=== PATIENT | male | born 1955 | race Caucasian/White ===

== ENCOUNTER 2018-07-11 12:28 | Inpatient (IN) ==
[2018-07-11] MEDS: levETIRAcetam 500 MG Tablet PO SCH (20:57)
[2018-07-11] MEDS: Sucralfate 1 GM Tablet PO SCH (20:57)
[2018-07-11] MEDS: traZODone 50 MG Tablet PO SCH (23:27)
[2018-07-11] MEDS: QUEtiapine 25 MG Tablet PO SCH (23:29)
[2018-07-12] MEDS: Lisinopril 10 MG Tablet PO SCH (08:31)
[2018-07-12] MEDS: levETIRAcetam 500 MG Tablet PO SCH ×2 (08:31→20:55)
[2018-07-12] MEDS: Sucralfate 1 GM Tablet PO SCH ×4 (08:31→20:55)
[2018-07-12] MEDS ORDERED: glipiZIDE 5 MG Tablet PO SCH (09:00)
--- NOTE | 2018-07-12 10:37 | P.CON ---
History of Present Illness Consult date: 07/12/18 Requesting Physician: Stefano Naranjo Reason for Consult: Medical management Primary Care Provider: UNKNOWN Chief Complaint: Medical management History of Present Illness: This is a 63-year-old male patient who is seen in the psychiatric department and [facility] was consulted for medical management. Patient seen and examined, sitting up in chair comfortably no apparent distress. He is a relatively poor historian and unable to offer much input regarding his reason for hospitalization as well as any medical history. He does state that he has a history of diabetes as well as hypertension and previous cardiac stent placement. He is unable to tell me when these stents were placed and does not know the name of his primary doctor nor teacher emotionally impaired. Supposedly patient lives at an [facility]. His home medications were continued. His blood pressure is controlled, systolic in the 150s. Accu-Cheks will be followed while hospitalized. Patient does complain of some right upper quadrant pain and CVA tenderness, he does admit to a history of kidney stones in his left kidney saw Dr. Kirk urology, 3 years ago. He also complains of some burning after he eats in his midepigastric area. Review of Systems All other systems reviewed negative except as stated in HPI PMFSH - History History Provided By: Patient - Medical History Medical History: Medical History (Last Updated 07/12/18 @ 13:27 by Natacha Mcdonough) CAD (coronary artery disease) Diabetes History of kidney stones Hypertension - Surgical History Surgical History: Surgical History (Last Updated 07/12/18 @ 13:27 by Natacha Mcdonough) H/O lithotripsy - Family History Family History: Family History (Last Updated 07/12/18 @ 13:27 by Natacha Mcdonough) Other Family history in first degree relatives is unremarkable - Social History I have reviewed the patient's Social History: Yes - Tobacco History Second Hand Smoke Exposure: No Tobacco Use In Past 30 Days: No Smoking Status: Former smoker Tobacco Type: Cigarettes - Alcohol History How Often Do You Have a Drink Containing Alcohol: Never - Substance Use History Substance History: No History of Abuse - Immunization History Tetanus Immunization: Unable to Assess Hx Influenza Vaccine This Season: No Medications and Allergies Active Medications: Active Medications Clopidogrel Bisulfate (Plavix) 75 mg PO DAILY [facility] Last Admin: 07/12/18 08:32 Dose: 75 mg Glipizide (Glucotrol) 5 mg PO DAILY [facility] Last Admin: 07/12/18 08:31 Dose: 5 mg Levetiracetam (Keppra) 500 mg PO BID [facility] Last Admin: 07/12/18 08:31 Dose: 500 mg Lisinopril (Prinivil) 10 mg PO DAILY [facility] Last Admin: 07/12/18 08:31 Dose: 10 mg Metformin HCl (Glucophage) 500 mg PO DAILY@1200 [facility] Metformin HCl (Glucophage) 1,000 mg PO BID@0900,1800 [facility] Last Admin: 07/12/18 08:49 Dose: 1,000 mg Pantoprazole Sodium (Protonix) 40 mg PO BID [facility] Last Admin: 07/12/18 08:31 Dose: 40 mg Pravastatin Sodium (Pravachol) 80 mg PO HS [facility] Last Admin: 07/11/18 20:57 Dose: 80 mg Quetiapine Fumarate (Seroquel) 50 mg PO [facility] Last Admin: 07/11/18 23:29 Dose: Not Given Sertraline HCl (Zoloft) 50 mg PO DAILY [facility] Sucralfate (Carafate) 1 gm PO QID [facility] Last Admin: 07/12/18 08:31 Dose: 1 gm Trazodone HCl (Desyrel) 50 mg PO [facility] Last Admin: 07/11/18 23:27 Dose: Not Given Allergies Allergy/AdvReac Type Severity Reaction Status Date / Time No Known Allergies Allergy Verified 07/11/18 17:12 Physical Exam Vital signs: Vital Signs 07/11/18 17:35 07/11/18 18:14 07/12/18 05:40 Temperature 97.4 F L 97.4 F L 98.8 F Pulse Rate 86 82 Respiratory Rate 18 18 18 Blood Pressure 152/83 H 152/83 H 154/83 H Pulse Oximetry 93 L 93 L 96 Intake & Output 07/11/18 07/12/18 07/12/18 18:59 06:59 18:59 Weight 82.5 kg Other: Weight On Admission 82.5 kg Narrative: GENERAL: Well-developed, well-nourished patient in [facility]. Sitting up in chair in no apparent distress. SKIN: Warm and dry. No rash. HEAD: Normocephalic. Atraumatic. EYES: Pupils equal and round. No scleral icterus. No injection or drainage. ENT: No nasal bleeding or discharge. Mucous membranes pink and moist. NECK: Supple. Trachea midline. CARDIOVASCULAR: Regular rate and rhythm. S1, S2 noted. No murmur appreciated. RESPIRATORY: No accessory muscle use. Clear to auscultation. Breath sounds equal bilaterally. GASTROINTESTINAL: Abdomen soft, non-tender, nondistended. Normoactive bowel sounds x4. : Mild right CVA tenderness. MUSCULOSKELETAL: No obvious deformities. Extremities without clubbing, cyanosis , or edema. NEUROLOGICAL: Awake and alert. No obvious cranial nerve deficits. Motor grossly within normal limits. 5/5 muscle strength in bilateral upper and lower extremities. Normal speech. PSYCHIATRIC: Appropriate mood and affect; insight and judgment normal. Assessment and Plan - Plan This is a 63-year-old male patient with: Depression -Management per primary team. -Continue medications as prescribed, Seroquel and Zoloft.. Type 2 diabetes mellitus, chronic -Patient continued on home medications, glipizide and metformin. -Check Accu-Cheks, monitor for any hypoglycemia. -Monitor blood sugar trends. Hypertension, chronic -Will continue home medications. -Continue to monitor blood pressure trends. History of CAD -Patient takes Plavix at home, this will be continued. Right upper quadrant pain Right CVA tenderness History of kidney stones -Patient complains of abdominal pain in the right upper quadrant tenderness. -Obtain UA as well as BMP and CBC. -Monitor any infection. -Check renal ultrasound. GERD -Patient complaints of some burning after eating, history of GERD. -Continue Carafate and Protonix. DVT Prophylaxis: Ambulation. Thank you for this consult, we will follow with you. Discussed Condition With: Patient and RN.
[2018-07-12] MEDS: Sertraline 50 MG Tablet PO SCH (12:15)
[2018-07-12] MEDS ORDERED: Dextrose 50% in Water 50 ML Vial IV.PUSH PRN (13:21)
[2018-07-12] MEDS ORDERED: Aluminum/Magnesium/Simethacone Susp 30 ML UDC PO PRN (14:47)
[2018-07-12] MEDS ORDERED: Acetaminophen 325 MG Tablet PO PRN (14:47)
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
--- NOTE | 2018-07-12 15:41 | US ---
EXAM DATE: 07/12/2018 3:38 PM EST AGE/SEX: 63 years / Male INDICATIONS: Flank pain. CLINICAL DATA: This is the patient's initial encounter. Patient reports that signs and symptoms have been present for 1 day and indicates a pain score of 1/10. MEDICAL/SURGICAL HISTORY: Diabetes. Hypertension. Coronary artery disease. Kidney stones. Lit hotripsy. COMPARISON: No prior exams available for comparison. MEASUREMENTS: Right Kidney:__9.0 x 5.2 x 4.9 cm Left Kidney:__9.4 x 4.3 x 5.1 cm FINDINGS: Right Kidney: No mass or hydronephrosis. Left Kidney: No mass or hydronephrosis. Bladder: Within normal limits given the degree of distension. Other: None. CONCLUSION: 1. Negative renal sonogram. Electronically signed by: Taylor Ron MD 07/12/2018 3:40 PM EST
[2018-07-12] MEDS ORDERED: Insulin NovoLOG Aspart Correctional Sugar Inj SQ SCH (17:00)
[2018-07-12 17:06] LABS: Baso # (Auto) 0.1 th/mm3 (0.0-0.2); Baso % (Auto) 0.5 % (0.0-2.0); Eos # (Auto) 0.3 th/mm3 (0.0-0.4); Eos % (Auto) 1.7 % (0.0-4.0); Hemoglobin 13.7 gm/dL (13.0-17.0); Lymph # (Auto) 3.2 th/mm3 (1.0-4.8); Lymph % (Auto) 20.1 % (9.0-44.0); Mean Corpuscular HGB Conc 34.4 % (32.0-36.0); Mean Corpuscular Volume 87.2 fL (80.0-100.0); Mean Platelet Volume 9.8 fL (7.0-11.0); Mono # (Auto) 1.2 th/mm3 (0.0-0.9); Mono % (Auto) 7.6 % (0.0-8.0); Neut # (Auto) 11.1 th/mm3 (1.8-7.7); Neut % (Auto) 70.1 % (16.0-70.0); Platelet Count 309 th/mm3 (150-450); Red Blood Count 4.58 mil/mm3 (4.50-5.90); Red Cell Distribution Width 14.9 % (11.6-17.2); White Blood Count 15.9 th/mm3 (4.0-11.0)
[2018-07-12 17:25] LABS: Calcium 8.7 mg/dL (8.5-10.1); Carbon Dioxide 24.8 meq/L (21.0-32.0); Potassium 4.2 meq/L (3.5-5.1)
[2018-07-12] MEDS: QUEtiapine 25 MG Tablet PO SCH (20:56)
[2018-07-12] MEDS: traZODone 50 MG Tablet PO SCH (20:56)
[2018-07-13] MEDS: glipiZIDE 5 MG Tablet PO SCH (06:31)
--- NOTE | 2018-07-13 08:44 | P.CONPSY ---
Provisional Diagnosis Admission Date: July 11, 2018 16:18 Ilion I.: 1. Unspecified psychosis Ilion II.: Deferred History of Present Illness Service: Psychiatry Consult date: 07/13/18 Requesting Physician: Stefano Naranjo Reason for Consult: Second opinion for involuntary psychiatric hospitalization Primary Care Provider: UNKNOWN Chief Complaint: Medical management History of Present Illness: From Dr. Naranjo's H&P: Patient is a 63-year-old [place] born white male comes here under [place] act signed by Cheikh Randle for [facility] dated 07/10/2018 and 9 AM that document reviewed stating major depressive disorder with psychotic features patient is delusional refusing medical care and poorly cooperative patient seen screen at that facility urine toxicology negative blood alcohol level negative. Patient medically cleared and transferred here under the Hank[place] act. We have our EMR shows no prior contact with this patient at [facility] [address]. Patient seen in the dayroom laying in [facility] chair RN present throughout session. Patient is an elderly appearing white male speaking in good Mohawk though with a fairly strong Slovenian accent. He is oriented to place time and situation. 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 He states he lives in a halfway where he does not like it there. It appears she initially went to the other hospital complaining of abdominal pain though at that facility he claimed to have been poisoned by the people at the halfway with a use food that is out of date. It appears she has been in this facility facility for about 2 months has been in prior nursing homes over the past few years. He has been at a young age he says he has no children of his own that he had as a child that early in life but he has 2 nephews that appear to be somewhat close to him. He does have family supposedly in [place]. He denies any prior psychiatric contact hospitalizations or psychotropic medications. He denies any suicidality voices or visions. 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 In any event at the present time patient does meet criteria for further inpatient psychiatric assessment. We will have the hospitalist consult with us. We will also have neuropsychology consult with us. Patient has multiple medical issues. His med reconciliation from the hospital has been reviewed and medicine is seeing this patient already. Though I feel he does meet inpatient criteria under the Hank[place] act thus I will do first opinion request second opinion. We need to get further information about patient's past mental health history and residential history On my examination today, 07/13: Patient seen and examined with nurse. Chart reviewed. Case discussed with nursing staff. I have explained to the patient the purpose of my evaluation today. On my examination today, the patient presents as somewhat irascible and easily agitated. He rails against someone named Sima, reportedly the pharmacist in charge owner of an [facility] where he had resided, accusing her of feeding residents "old food" that in 2005. He alleges that she "murders people for money." He also alleges that a case sealer, Shani, is involved in "criminal stuff." These beliefs do not seem confined to these individuals, however. For example, the patient notes that he has recently been moved to a new facility but has found that they are doing the same things there (e.g. feeding residents food) . In context, these beliefs seem to have a delusional quality, although some kernel of truth cannot be ruled out. Patient denies any SI or HI. He denies any mood symptoms. He denies any hallucinations. Remainder of the psychiatric ROS is negative. No acute physical complaints. Past psychiatric history: Patient denies a history of psychiatric diagnosis. He denies any history of inpatient or outpatient psychiatric treatment. He denies any history of self-harm. Family history: The patient denies any family history of mental illness. Chemical dependency history: The patient denies any abuse of drugs or alcohol. Social history: Patient is originally from [place]. He reports that he has been residing at his present [facility] for 3 weeks and before that was residing in another [facility]. 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 His is and he has 1 child who is also reportedly . Review of Systems All other systems reviewed negative except as stated in HPI (Limitation: Poor historian.) PMFSH - History History Provided By: Patient - Medical History Medical History: Medical History (Last Reviewed 07/12/18 @ 15:01 by Stefano Naranjo MD) CAD (coronary artery disease) Diabetes History of kidney stones Hypertension - Surgical History Surgical History: Surgical History (Last Reviewed 07/12/18 @ 15:01 by Stefano Naranjo MD) H/O lithotripsy - Family History Family History: Family History (Last Reviewed 07/12/18 @ 15:01 by Stefano Naranjo MD) Other Family history in first degree relatives is unremarkable - Tobacco History Second Hand Smoke Exposure: No Tobacco Use In Past 30 Days: No Smoking Status: Former smoker Tobacco Type: Cigarettes - Alcohol History How Often Do You Have a Drink Containing Alcohol: Never - Substance Use History Substance History: No History of Abuse - Immunization History Tetanus Immunization: Unable to Assess Hx Influenza Vaccine This Season: No Medications and Allergies Active Medications: Active Medications Acetaminophen (Tylenol) 650 mg PO Q4H PRN PRN Reason: Pain 1-5 or Temp >101F Al Hydrox/Mg Hydrox/Simethicone (Mag-Al Plus Susp Liq) 30 ml PO Q6H PRN PRN Reason: DYSPEPSIA Al Hydroxide/Mg Hydroxide (Milk Of Magnesia Liq) 30 ml PO Q12H PRN PRN Reason: Mild Constipation Clopidogrel Bisulfate (Plavix) 75 mg PO DAILY [facility] Last Admin: 07/12/18 08:32 Dose: 75 mg Glipizide (Glucotrol) 5 mg PO DAILY@0700 [facility] Last Admin: 07/13/18 06:31 Dose: 5 mg Hydroxyzine HCl (Atarax) 50 mg PO Q6H PRN PRN Reason: ANXIETY Levetiracetam (Keppra) 500 mg PO BID [facility] Last Admin: 07/12/18 20:55 Dose: 500 mg Lisinopril (Prinivil) 10 mg PO DAILY [facility] Last Admin: 07/12/18 08:31 Dose: 10 mg Metformin HCl (Glucophage) 500 mg PO DAILY@1200 [facility] Last Admin: 07/12/18 11:44 Dose: 500 mg Metformin HCl (Glucophage) 1,000 mg PO BID@0900,1800 [facility] Last Admin: 07/12/18 18:42 Dose: Not Given Pantoprazole Sodium (Protonix) 40 mg PO BID [facility] Last Admin: 07/12/18 20:55 Dose: 40 mg Pravastatin Sodium (Pravachol) 80 mg PO [facility] Last Admin: 07/12/18 20:55 Dose: 80 mg Quetiapine Fumarate (Seroquel) 50 mg PO [facility] Last Admin: 07/12/18 20:56 Dose: 50 mg Sertraline HCl (Zoloft) 50 mg PO DAILY [facility] Last Admin: 07/12/18 12:15 Dose: Not Given Sucralfate (Carafate) 1 gm PO QID [facility] Last Admin: 07/12/18 20:55 Dose: 1 gm Trazodone HCl (Desyrel) 50 mg PO [facility] Last Admin: 07/12/18 20:56 Dose: 50 mg Allergies Allergy/AdvReac Type Severity Reaction Status Date / Time No Known Allergies Allergy Verified 07/11/18 17:12 Exam Vital signs: Vital Signs 07/12/18 17:25 07/13/18 06:00 Temperature 98.8 F 98.1 F Pulse Rate 78 71 Respiratory Rate 17 16 Blood Pressure 102/56 L 93/54 L Pulse Oximetry 95 92 L Narrative: Physical examination was completed by hospitalist accounting policy consultant. On my examination today, the patient appears to be in no acute physical distress. I do note that the patient has 2 small superficial lacerations on his forehead, and when I asked him about this he says that he fell on the toilet. Labs and vital signs reviewed: Laboratory Results - last 24 hr 07/12/18 07/12/18 07/12/18 15:30 15:30 17:39 WBC 15.9 H RBC 4.58 Hgb 13.7 Hct 40.0 MCV 87.2 MCH 30.0 MCHC 34.4 RDW 14.9 Plt Count 309 MPV 9.8 Neut % (Auto) 70.1 H Lymph % (Auto) 20.1 [place] % (Auto) 7.6 Eos % (Auto) 1.7 Baso % (Auto) 0.5 Neut # (Auto) 11.1 H Lymph # (Auto) 3.2 [place] # (Auto) 1.2 H Eos # (Auto) 0.3 Baso # (Auto) 0.1 WBC Differential . Differential Comment Auto diff final Sodium 140 Potassium 4.2 Chloride 106 Carbon Dioxide 24.8 Anion Gap 9 BUN 19 H Creatinine 1.36 H Estimated GFR 53 L POC Glucose 143 H Random Glucose 96 Calcium 8.7 07/12/18 07/13/18 20:39 06:26 WBC RBC Hgb Hct MCV MCH MCHC RDW Plt Count MPV Neut % (Auto) Lymph % (Auto) [place] % (Auto) Eos % (Auto) Baso % (Auto) Neut # (Auto) Lymph # (Auto) [place] # (Auto) Eos # (Auto) Baso # (Auto) WBC Differential Differential Comment Sodium Potassium Chloride Carbon Dioxide Anion Gap BUN Creatinine Estimated GFR POC Glucose 152 H 199 H Random Glucose Calcium Mental Status Examination Appearance: Disheveled Consciousness: Alert Orientation: Person, Place, Date/Time Motor Activity: Abnormal gait (In a Rhonda chair) Speech: Unremarkable Language: Other (Rambling) Fund of Knowledge: Adequate (Fair) Attention and Concentration: Adequate (Fair ) Mood: Irritable Affect: Irritable, Other (Somewhat dysphoric) Thought Process & Associations: Other (Somewhat perseverative) Thought Content: Delusional Hallucination Type: None Delusion Type: Paranoid Suicidal Ideation: No Suicidal Plan: No Suicidal Intention: No Homicidal Ideation: No Homicidal Plan: No Homicidal Intention: No Insight: Poor Judgment: Poor Mental Status Exam Remarks: Attempts were made at mental status testing beyond orientation, but the patient becomes frustrated and says "I am a normal man!" and essentially refuses to participate in further mental status testing. Assessment and Plan - Assessment (1) Unspecified psychosis Code(s): F29 - Unspecified psychosis not due to a substance or known physiological condition Status: Acute - Plan Plan: Given the circumstances of the patient's presentation here and his presentation on my examination today, I concur with Dr. Naranjo that the patient meets criteria for involuntary psychiatric hospitalization under the Hankins act. Main concern here is for possible self-care deficit as a consequence of psychosis, although there may be some potential for risk of harm to others since he believes that he and others are being poisoned with food. As noted above, I do suspect that the patient's beliefs are delusional in nature, but there may be some kernel of truth to the patient's allegations. If further information or observations suggests that this may be the case, initiation of a DCF report is recommended. I have completed the second opinion paperwork. Further care as per Dr. Naranjo. Thank you very much for this consultation. Signing off. Justification for Continued Inpatient Stay: Per Dr. Naranjo Request Healthcare Surrogate/Guardian Advocate?: No (1) Unspecified psychosis Qualifiers: Psychosis type: unspecified psychosis type Qualified Code(s): F29 - Unspecified psychosis not due to a substance or known physiological condition
[2018-07-13] MEDS: Sucralfate 1 GM Tablet PO SCH ×4 (09:10→20:47)
[2018-07-13] MEDS: Sertraline 50 MG Tablet PO SCH (09:10)
[2018-07-13] MEDS: levETIRAcetam 500 MG Tablet PO SCH ×2 (09:10→20:47)
[2018-07-13] MEDS: Lisinopril 10 MG Tablet PO SCH (09:18)
--- NOTE | 2018-07-13 10:50 | P.PNPSY ---
Subjective Remarks: Patient is seen today in day room with floor staff, chart reviewed, patient compliant medication. Counselor has talked with patient's female friend. 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 We need to get further information about that. Patient's friend is been unable to visit with us today we will try to arrange a meeting for the next day or so. Otherwise patient was calm cooperative with me did remember me from yesterday. Continues to complain of some vague abdominal pain he feels our food here is tolerable. For now continue treatment no change Review of Systems All other systems reviewed negative except as stated in HPI Mental Status Examination Appearance: Disheveled (Mildly) Consciousness: Alert Orientation: Person, Place, Date/Time, Situation Motor Activity: Other (Patient right-sided weakness secondary to stroke) Speech: Rapid (Strong [place]er accent) Language: Adequate Fund of Knowledge: Adequate (Fair) Attention and Concentration: Adequate (Fair ) Memory: Impaired Mood: Other (Euthymic to somewhat irritable and dysphoric) Affect: Other (Good range and intensity) Thought Process & Associations: Goal directed, Loose associations Thought Content: Delusional (Feels his [facility] is being poisoned at the [facility]) Hallucination Type: None Delusion Type: Paranoid Suicidal Ideation: No Suicidal Plan: No Suicidal Intention: No Homicidal Ideation: No Homicidal Plan: No Homicidal Intention: No Insight: Poor Judgment: Poor Assessment and Plan - Assessment (1) Unspecified psychosis Code(s): F29 - Unspecified psychosis not due to a substance or known physiological condition Status: Acute - Plan Plan: Patient remains calm low behavioral problems though patient is still somewhat delusional. For now continue treatment. Continue to attempt to arrange a meeting with his lady friend Justification for Continued Inpatient Stay: At this time patient would decompensate if placed in a lower level of care Discharge Planning: To be determined placement may be somewhat problematic Request Healthcare Surrogate/Guardian Advocate?: No (1) Unspecified psychosis Qualifiers: Psychosis type: unspecified psychosis type Qualified Code(s): F29 - Unspecified psychosis not due to a substance or known physiological condition
--- NOTE | 2018-07-13 15:26 | P.TTN ---
- Patient Problems Problems: 1. Discharge planning 2. Medication compliance 3. Knowledge deficit 4. Lack of coping skills - Progress Toward Goals Provider Present: Dr. Miroslava Naranjo, Dr. Nikole Franco Provider Input: 07/13/18: A Friend of the Patient will be meeting with Dr. Naranjo today. Nurse(s) Present: Natalie Nurse Input: 07/13/18: Manic, Insomnia Psychiatric Counselors Present: Damon Gan Jr., [facility], Danika Tomas, [facility] Psychiatric Therapist Input: 07/13/18: Return to facility in [place] when stable Group Spec/RT/OT/POWELL Present: Es Pollock, GPS, Law French, OT Occupational Therapist Input: 07/13/18: Pt has been attending select group activities since his admission. - Discharge Plan 07/13/18: When stable patient will be placed MH Tender - Documentation Scribe: Es Pollock Teaching Recipient: Patient
--- NOTE | 2018-07-13 15:40 | P.PNIM ---
Subjective Interval history: Follow-up diabetes mellitus type II, hypertension, CVA with right sided weakness and previous cardiac stent placement. Patient seen and examined sitting in the chair in the day room, patient complain of right lower abdominal pain and epigastric pain, stated is not acid complained more of gas. Patient complained of constipation and wants to have some stool softener. Patient denies any nausea or vomiting. Patient denies any headache or dizziness, denies any chest pain or shortness of breath, denies any fever or chills. 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 Physical Exam Vital signs: Vital Signs 07/12/18 17:25 07/13/18 06:00 Temperature 98.8 F 98.1 F Pulse Rate 78 71 Respiratory Rate 17 16 Blood Pressure 102/56 L 93/54 L Pulse Oximetry 95 92 L Narrative: GENERAL: Well-developed, well-nourished descent male, sitting up in a chair in no apparent distress SKIN: Warm and dry. HEAD: Atraumatic. Normocephalic. EYES: Pupils equal and round. No scleral icterus. No injection or drainage. ENT: No nasal bleeding or discharge. Mucous membranes pink and moist. NECK: Trachea midline. No JVD. CARDIOVASCULAR: Regular rate and rhythm. RESPIRATORY: No accessory muscle use. Clear to auscultation. Breath sounds equal bilaterally. GASTROINTESTINAL: Abdomen soft, non-tender, nondistended. Hepatic and splenic margins not palpable. MUSCULOSKELETAL: Extremities without clubbing, cyanosis, or edema. No obvious deformities. Right-sided weakness, right upper extremity flaccid NEUROLOGICAL: Awake and alert. No obvious cranial nerve deficits. Motor grossly within normal limits. Generalized weakness, moving all 4 extremities except right upper arm flaccid. Normal speech. PSYCHIATRIC: Appropriate mood and affect; insight and judgment poor Results - Labs CBC & Chem 7: 07/12/18 15:30 07/12/18 15:30 Laboratory Results - last 24 hr 07/12/18 07/12/18 07/12/18 15:30 15:30 15:59 WBC 15.9 H RBC 4.58 Hgb 13.7 Hct 40.0 MCV 87.2 MCH 30.0 MCHC 34.4 RDW 14.9 Plt Count 309 MPV 9.8 Neut % (Auto) 70.1 H Lymph % (Auto) 20.1 [place] % (Auto) 7.6 Eos % (Auto) 1.7 Baso % (Auto) 0.5 Neut # (Auto) 11.1 H Lymph # (Auto) 3.2 [place] # (Auto) 1.2 H Eos # (Auto) 0.3 Baso # (Auto) 0.1 WBC Differential . Differential Comment Auto diff final Sodium 140 Potassium 4.2 Chloride 106 Carbon Dioxide 24.8 Anion Gap 9 BUN 19 H Creatinine 1.36 H Estimated GFR 53 L POC Glucose 103 Random Glucose 96 Calcium 8.7 07/12/18 07/12/18 07/13/18 17:39 20:39 06:26 WBC RBC Hgb Hct MCV MCH MCHC RDW Plt Count MPV Neut % (Auto) Lymph % (Auto) [place] % (Auto) Eos % (Auto) Baso % (Auto) Neut # (Auto) Lymph # (Auto) [place] # (Auto) Eos # (Auto) Baso # (Auto) WBC Differential Differential Comment Sodium Potassium Chloride Carbon Dioxide Anion Gap BUN Creatinine Estimated GFR POC Glucose 143 H 152 H 199 H Random Glucose Calcium - Imaging Impressions Abdomen/Bladder Ultrasound 07/12/18 00:00 CONCLUSION: 1. Negative renal sonogram. Assessment and Plan - Assessment (1) Hypertension Code(s): I10 - Essential (primary) hypertension Status: Acute (2) Diabetes type 2, controlled Code(s): E11.9 - Type 2 diabetes mellitus without complications Status: Acute (3) CAD (coronary artery disease) Code(s): I25.10 - Atherosclerotic heart disease of [place] coronary artery without angina pectoris Status: Acute (4) Abdominal pain Code(s): R10.9 - Unspecified abdominal pain Status: Acute - Plan This is a 63-year-old male patient with past medical history of hypertension, CAD, CVA, diabetes mellitus type 2, and depression Type 2 diabetes mellitus, chronic Blood sugar fair controlled -Patient continued on home medications, glipizide and metformin. -Check Accu-Cheks, monitor for any hypoglycemia. -Monitor blood sugar trends. Hypertension, chronic History of CAD Elevated BP on admission 152/83, low today at 93,54 -Decrease lisinopril dose, adjust accordingly -Continue to monitor blood pressure trends. -Continue Plavix per home dose Right upper quadrant pain Right CVA tenderness History of kidney stones Leukocytosis -Patient complains of abdominal pain in the right upper quadrant tenderness. -Monitor any infection. no fever or chills - Renal ultrasound negative -Complained of gassy pain, add stool softener and laxative as needed - send urine for UA with C & S if indicated, recheck CBC & BMP in am -Abdominal x-ray rule out ileus GERD -Patient complaints of some burning after eating, history of GERD. -Continue Carafate and Protonix. Depression/unspecified psychosis -Management per primary team. -Continue medications as prescribed, Seroquel and Zoloft.. DVT Prophylaxis: Ambulation. Thank you for this consult, we will follow with you. Code Status: Full code Discussed Condition With: Patient and nurse
[2018-07-13] MEDS: Senna/Docusate Sodium 8.6/50 MG Tablet PO SCH (16:37)
--- NOTE | 2018-07-13 17:04 | XR ---
EXAM DATE: 07/13/2018 4:55 PM EST AGE/SEX: 63 years / Male INDICATIONS: Abdominal pain. CLINICAL DATA: This is the patient's initial encounter. Patient reports that signs and symptoms have been present for 1 day and indicates a pain score of Nonresponsive. MEDICAL/SURGICAL HISTORY: . Diabetes. Hypertension. Coronary artery disease. Kidney stones. . Lithotripsy. COMPARISON: No prior exams available for comparison. FINDINGS: Significant amount retained stool is seen throughout the left colon. Intestinal gas pattern is other denis unremarkable. There is no evidence of pathologic distention, free air or mass effect. Postcholecystectomy clips are noted. CONCLUSION: Significant amount retained stool in the left colon. No evidence of obstruction. Electronically signed by: Clemente Espino MD 07/13/2018 5:02 PM EST
[2018-07-13] MEDS: Lisinopril 5 MG Tablet PO SCH (18:38)
[2018-07-13] MEDS: QUEtiapine 25 MG Tablet PO SCH (20:47)
[2018-07-13] MEDS: traZODone 50 MG Tablet PO SCH (20:47)
[2018-07-14] MEDS: glipiZIDE 5 MG Tablet PO SCH (06:31)
[2018-07-14 07:15] LABS: Baso # (Auto) 0.1 th/mm3 (0.0-0.2); Baso % (Auto) 0.5 % (0.0-2.0); Eos # (Auto) 0.2 th/mm3 (0.0-0.4); Eos % (Auto) 1.6 % (0.0-4.0); Hematocrit 36.4 % (39.0-51.0); Hemoglobin 12.5 gm/dL (13.0-17.0); Lymph # (Auto) 2.8 th/mm3 (1.0-4.8); Lymph % (Auto) 23.3 % (9.0-44.0); Mean Corpuscular HGB Conc 34.3 % (32.0-36.0); Mean Corpuscular Hemoglobin 28.9 pg (27.0-34.0); Mean Corpuscular Volume 84.1 fL (80.0-100.0); Mean Platelet Volume 9.9 fL (7.0-11.0); Mono # (Auto) 0.8 th/mm3 (0.0-0.9); Mono % (Auto) 6.4 % (0.0-8.0); Neut # (Auto) 8.2 th/mm3 (1.8-7.7); Neut % (Auto) 68.2 % (16.0-70.0); Platelet Count 254 th/mm3 (150-450); Red Blood Count 4.33 mil/mm3 (4.50-5.90); Red Cell Distribution Width 14.6 % (11.6-17.2)
[2018-07-14 07:40] LABS: Calcium 8.5 mg/dL (8.5-10.1); Carbon Dioxide 23.6 meq/L (21.0-32.0); Potassium 4.1 meq/L (3.5-5.1)
[2018-07-14] MEDS: Sucralfate 1 GM Tablet PO SCH ×4 (08:58→20:34)
[2018-07-14] MEDS: levETIRAcetam 500 MG Tablet PO SCH ×2 (08:58→20:34)
[2018-07-14] MEDS: Sertraline 50 MG Tablet PO SCH (08:58)
[2018-07-14] MEDS: Senna/Docusate Sodium 8.6/50 MG Tablet PO SCH (08:58)
[2018-07-14] MEDS: Lisinopril 5 MG Tablet PO SCH (08:59)
--- NOTE | 2018-07-14 12:00 | P.NPEVAL ---
Patient History - Record/History Review Reason for Referral: The patient is a 63 year old right handed man of [place] decent who was admitted to the psychiatry unit of [facility] on under Hankins Act for refusing medical care. He has a questionable history of CVA, and is s/p CEA on the right. The patient has been living in a custodial, complaining that the residents are trying to poison him. He is referred for baseline neurobehavioral status examination to assess cognitive, behavioral and emotional aspects of the injury and to provide treatment recommendations. [facility] - History History Provided By: Patient - Medical History Medical History: Medical History (Last Reviewed 07/12/18 @ 15:01 by Stefano Naranjo MD) CAD (coronary artery disease) Diabetes History of kidney stones Hypertension - Surgical History Surgical History: Surgical History (Last Reviewed 07/12/18 @ 15:01 by Stefano Naranjo MD) H/O lithotripsy - Family History Family History: Family History (Last Reviewed 07/12/18 @ 15:01 by Stefano Naranjo MD) Other Family history in first degree relatives is unremarkable - Tobacco History Second Hand Smoke Exposure: No Tobacco Use In Past 30 Days: No Smoking Status: Former smoker Tobacco Type: Cigarettes - Alcohol History How Often Do You Have a Drink Containing Alcohol: Never - Substance Use History Substance History: No History of Abuse - Immunization History Tetanus Immunization: Unable to Assess Hx Influenza Vaccine This Season: No Medications Active Medications Acetaminophen (Tylenol) 650 mg PO Q4H PRN PRN Reason: Pain 1-5 or Temp >101F Al Hydrox/Mg Hydrox/Simethicone (Mag-Al Plus Susp Liq) 30 ml PO Q6H PRN PRN Reason: DYSPEPSIA Al Hydroxide/Mg Hydroxide (Milk Of Magnesia Liq) 30 ml PO Q12H PRN PRN Reason: Mild Constipation Clopidogrel Bisulfate (Plavix) 75 mg PO DAILY [facility] Last Admin: 07/14/18 08:59 Dose: 75 mg Glipizide (Glucotrol) 5 mg PO DAILY@0700 [facility] Last Admin: 07/14/18 06:31 Dose: 5 mg Hydroxyzine HCl (Atarax) 50 mg PO Q6H PRN PRN Reason: ANXIETY Levetiracetam (Keppra) 500 mg PO BID [facility] Last Admin: 07/14/18 08:58 Dose: 500 mg Lisinopril (Prinivil) 5 mg PO DAILY [facility] Last Admin: 07/14/18 08:59 Dose: 5 mg Metformin HCl (Glucophage) 500 mg PO DAILY@1200 [facility] Last Admin: 07/13/18 12:24 Dose: 500 mg Metformin HCl (Glucophage) 1,000 mg PO BID@0900,1800 [facility] Last Admin: 07/14/18 10:47 Dose: 1,000 mg Pantoprazole Sodium (Protonix) 40 mg PO BID [facility] Last Admin: 07/14/18 08:58 Dose: 40 mg Pravastatin Sodium (Pravachol) 80 mg PO [facility] Last Admin: 07/13/18 20:47 Dose: 80 mg Quetiapine Fumarate (Seroquel) 50 mg PO [facility] Last Admin: 07/13/18 20:47 Dose: 50 mg Senna/Docusate Sodium (Jillian-Colace) 2 tab PO DAILY [facility] Last Admin: 07/14/18 08:58 Dose: 2 tab Sertraline HCl (Zoloft) 50 mg PO DAILY [facility] Last Admin: 07/14/18 08:58 Dose: 50 mg Sucralfate (Carafate) 1 gm PO QID [facility] Last Admin: 07/14/18 08:58 Dose: 1 gm Trazodone HCl (Desyrel) 50 mg PO [facility] Last Admin: 07/13/18 20:47 Dose: 50 mg Mental Status Assessment - Mental Status Orientation: oriented to: Self, Place, Time, disoriented to: Situation Mental Status: Variable: Language/interactions, Impaired: Thought processing, Attention, Learning/memory, Problem-solving Absent: Hallucinations, Delusions Adjustment/Coping Assessment - Adjustment/Coping Adjustment/Coping: Severe: Awareness, Insight - Observation In terms of emotional functioning, the patient demonstrated challenges. This patient demonstrated no signs of agitation, impulsivity or disinhibition, nor was there remarkable evidence of a formal thought disorder or psychosis. He was however, generally noncompliant with this examiner. There was no evidence of depression or anxiety. Thought content was free from suicidal or homicidal ideation, positive for paranoid ideation, and thought processes were bradyphrenic. The patients mood was guarded, and his affect was flat. The patient appears to possess minimal insight and awareness into their situation and within the limits of this brief evaluation, poor judgment. - Goals/Team Members LTG Status: Deferred STG Status: Deferred Team Members: Neuropsychologist Behavior - Behavior Treatment Engagement: Minimal - Observation Behaviorally, the patient demonstrated no signs of agitation, impulsivity or disinhibition. There was no remarkable evidence of a formal thought disorder or psychosis. - Goals LTG Status: Deferred STG Status: Deferred Diagnosis/Discharge Plan - Diagnosis (1) Major neurocognitive disorder due to another medical condition with behavioral disturbance Status: Acute Impression: 63 year old man admitted under Hankins Act on 07/11/2018 for refusing medical care. He was generally unable to be tested due to his noncompliance, but discussable findings are presented. He demonstrates diminished insight, awareness and judgment that calls into question his decision making capacity. In my clinical opinion, he lacks decision making capacity due to neurocognitive disorder. Maximizing Acute Care Outcome: It is recommended that the patient be monitored for emergent behavioral impulsivity as the medical condition evolves. This patients neuropathological challenges may limit rehabilitation potential going forward, and these challenges will require specialized therapeutic skills to maximize outcome. At this point in the recovery process and in my clinical opinion, the patient does not have cognitive capacity as the patient is unable to understand a situation and its likely consequences, nor is the patient able to manipulate information rationally. Cognitive capacity will be assessed throughout the recovery process. - Discharge Planning Anticipated Problems: Ongoing areas of concern will include behavioral impulsivity, lack of insight and judgment, which is not expected to improve with time or treatment. Treatment Plan: Continued psychiatric evaluation and treatment is recommended. His neurobehavioral issues appear to preclude his ability to return to a semi- independent living situation, and he may require placement in a LTAC facility. Thank you for the opportunity to assist in this patients care. Martin Zheng, Ph.D., ABPP Board Certified in Clinical Neuropsychology [place] [employer] [place] Licensed Psychologist #[id number]
--- NOTE | 2018-07-14 14:17 | P.PNPSY ---
Subjective Remarks: Patient is seen in day room with nurse Ford, chart reviewed, patient compliant medication. Dr. Muñoz consultation reviewed and appreciated and agreed with. We will increase Seroquel to 50 mg twice daily. Patient remains calm with me though with a little underlying irritability with his responses. While most are fairly accurate and goal oriented there is some degree of confusion with him. He does state he slept fairly well. States he ate fairly well. Is showing no signs of the delusional ideation related to food and food poisoning that occurred prior at this time continue treatment no change Review of Systems All other systems reviewed negative except as stated in HPI Mental Status Examination Appearance: Appropriate Consciousness: Alert Orientation: Person, Place, Date/Time Motor Activity: Abnormal gait (In a Rhonda chair) Speech: Unremarkable Language: Other (Rambling) Fund of Knowledge: Adequate (Fair) Attention and Concentration: Adequate (Fair ) Memory: Impaired Mood: Irritable Affect: Other (Increased range and intensity) Thought Process & Associations: Disorganized, Other (Somewhat perseverative) Thought Content: Delusional Hallucination Type: None Delusion Type: Paranoid Suicidal Ideation: No Suicidal Plan: No Suicidal Intention: No Homicidal Ideation: No Homicidal Plan: No Homicidal Intention: No Insight: Poor Judgment: Poor Assessment and Plan - Assessment (1) Unspecified psychosis Code(s): F29 - Unspecified psychosis not due to a substance or known physiological condition Status: Acute - Plan Plan: Patient remains somewhat irritable though no significant behavioral problems, Dr. Zheng's consultation reviewed and agreed with. She medication adjustment above we will continue to await word from patient's girlfriend to get further information about this gentleman Justification for Continued Inpatient Stay: At this time patient would decompensate a place to a lower level of care Request Healthcare Surrogate/Guardian Advocate?: No (1) Unspecified psychosis Qualifiers: Psychosis type: unspecified psychosis type Qualified Code(s): F29 - Unspecified psychosis not due to a substance or known physiological condition
--- NOTE | 2018-07-14 14:26 | P.PNIM ---
Subjective Interval history: Follow-up visit DM 2, HTN, CVA with right-sided weakness. Patient seen and examined today. Reports he is doing okay. States that he continues to have constipation. States he is being poisoned. Reassurance provided. As per nursing, no acute issues overnight. Physical Exam Vital signs: Vital Signs 07/13/18 18:11 07/14/18 06:12 Temperature 98.9 F 98.9 F Pulse Rate 75 79 Respiratory Rate 18 Blood Pressure 135/65 135/73 Pulse Oximetry 98 95 Intake & Output 07/13/18 07/14/18 07/14/18 18:59 06:59 18:59 Intake Total 480 / 480 Balance 480 / 480 Intake: Oral 480 / 480 Other: Date of Last Bowel Movement 07/13/18 Narrative: GENERAL: This is a well-nourished, well-developed patient, in no apparent distress. SKIN: Warm and dry. HEENT: Normocephalic. Pupils equal round and reactive. Nose without bleeding. Airway patent. NECK: Trachea midline. CARDIOVASCULAR: Regular rate and rhythm without murmurs, gallops, or rubs. RESPIRATORY: Clear to auscultation. Breath sounds equal bilaterally. No wheezes , rales, or rhonchi. GASTROINTESTINAL: Abdomen soft, non-tender, slightly distended. Bowel Sounds hypoactive MUSCULOSKELETAL: Extremities without clubbing, cyanosis, or edema. NEUROLOGICAL: Awake and alert. Oriented to place, person. No focal neuro deficit. Moves all extremities. Normal speech. Results - Labs CBC & Chem 7: 07/14/18 05:54 07/14/18 05:54 Laboratory Results - last 24 hr 07/14/18 07/14/18 07/14/18 05:24 05:54 05:54 WBC 12.0 H RBC 4.33 L Hgb 12.5 L Hct 36.4 L MCV 84.1 MCH 28.9 MCHC 34.3 RDW 14.6 Plt Count 254 MPV 9.9 Neut % (Auto) 68.2 Lymph % (Auto) 23.3 Andrews % (Auto) 6.4 Eos % (Auto) 1.6 Baso % (Auto) 0.5 Neut # (Auto) 8.2 H Lymph # (Auto) 2.8 Andrews # (Auto) 0.8 Eos # (Auto) 0.2 Baso # (Auto) 0.1 WBC Differential . Differential Comment Auto diff final Sodium 140 Potassium 4.1 Chloride 105 Carbon Dioxide 23.6 Anion Gap 11 BUN 24 H Creatinine 1.37 H Estimated GFR 53 L POC Glucose 148 H Random Glucose 164 H Calcium 8.5 - Imaging Impressions Abdomen X-Ray 07/13/18 00:00 CONCLUSION: Significant amount retained stool in the left colon. No evidence of obstruction. Assessment and Plan - Assessment (1) Hypertension Code(s): I10 - Essential (primary) hypertension Status: Acute (2) Diabetes type 2, controlled Code(s): E11.9 - Type 2 diabetes mellitus without complications Status: Acute (3) CAD (coronary artery disease) Code(s): I25.10 - Atherosclerotic heart disease of [place] coronary artery without angina pectoris Status: Acute (4) Abdominal pain Code(s): R10.9 - Unspecified abdominal pain Status: Acute - Plan [id number] male patient with past medical history of hypertension, CAD, CVA, diabetes mellitus type 2, and depression who [facility] delusional refusing medical care and poorly cooperative. Patient was Hankins acted and admitted to inpatient psychiatry unit for further evaluation Depression/unspecified psychosis -Management by psychiatry team Type 2 diabetes mellitus, no acute complication -Glipizide and metformin. -Accu-Cheks, monitor for any hypoglycemia. -Monitor blood sugar trends -Check hemoglobin A1c Hypertension, controlled History of CAD -Continue Plavix, lisinopril 5 mg daily (decreased dose) -Monitor BP trend Right upper quadrant pain Right CVA tenderness History of kidney stones Leukocytosis -Renal ultrasound negative -Complains of constipation -Abdominal x-ray showed Significant amount retained stool in the left colon -Lactulose x1 dose now. Continue with bowel regimen. GERD -Continue Carafate and Protonix Elevated creatinine, possibly chronic secondary to diabetic nephropathy -Avoid nephrotoxins. Monitor renal indicis -Renal ultrasound negative -Encourage p.o. fluid intake -Decrease metformin dose for now, will hold off if UI ENGINEER cont to be elevated DVT Prophylaxis Ambulation. Code Status: Full code Discussed Condition With: Patient, nurse Discharge Planning: DC disposition by primary team
[2018-07-14 17:08] LABS: Hemoglobin A1c 6.1 % (4.3-6.0)
[2018-07-14] MEDS: traZODone 50 MG Tablet PO SCH (20:34)
[2018-07-14] MEDS: QUEtiapine 25 MG Tablet PO SCH (20:35)
[2018-07-15] MEDS: glipiZIDE 5 MG Tablet PO SCH (06:23)
[2018-07-15] MEDS: levETIRAcetam 500 MG Tablet PO SCH ×2 (08:44→20:28)
[2018-07-15] MEDS: Lisinopril 5 MG Tablet PO SCH (08:45)
[2018-07-15] MEDS: QUEtiapine 25 MG Tablet PO SCH ×2 (08:45→17:26)
[2018-07-15] MEDS: Sertraline 50 MG Tablet PO SCH (08:46)
[2018-07-15] MEDS: Sucralfate 1 GM Tablet PO SCH ×3 (08:46→20:28)
[2018-07-15] MEDS: Senna/Docusate Sodium 8.6/50 MG Tablet PO SCH (11:48)
--- NOTE | 2018-07-15 14:10 | P.PNPSY ---
Subjective Remarks: Patient seen in day room with nurse Ford, chart reviewed, patient compliant medication. Patient continues alert diffusely confused today somewhat more irritable angry and paranoid saying it is nothing wrong with him mentally the point system but can say is this is the problem. He is becoming more agitated when we attempted to discuss placement issues. For now we will increase Seroquel from twice daily to 3 times daily at 50 mg Review of Systems All other systems reviewed negative except as stated in HPI Mental Status Examination Appearance: Appropriate Consciousness: Alert Orientation: Person, Place, Date/Time Motor Activity: Abnormal gait (In a Rhonda chair) Speech: Unremarkable, Rapid (Somewhat increased at this time) Language: Other (Rambling) Fund of Knowledge: Adequate (Fair) Attention and Concentration: Adequate (Fair ) Memory: Impaired Mood: Angry (Somewhat today), Irritable Affect: Other (Increased range and intensity) Thought Process & Associations: Disorganized, Other (Somewhat perseverative) Thought Content: Delusional Hallucination Type: None Delusion Type: Paranoid Suicidal Ideation: No Suicidal Plan: No Suicidal Intention: No Homicidal Ideation: No Homicidal Plan: No Homicidal Intention: No Insight: Poor Judgment: Poor Assessment and Plan - Assessment (1) Unspecified psychosis Code(s): F29 - Unspecified psychosis not due to a substance or known physiological condition Status: Acute - Plan Plan: Patient continues psychotic delusional some increased paranoia today anger and irritability. She medication adjustment above Justification for Continued Inpatient Stay: At this time patient would decompensate a place to a lower level of care Discharge Planning: Placement may become problematic Request Healthcare Surrogate/Guardian Advocate?: No (1) Unspecified psychosis Qualifiers: Psychosis type: unspecified psychosis type Qualified Code(s): F29 - Unspecified psychosis not due to a substance or known physiological condition
--- NOTE | 2018-07-15 14:59 | P.PNIM ---
Subjective Interval history: Follow-up visit DM 2, HTN, CVA with right-sided weakness. Patient seen and examined today. Reports he is doing okay. As per nursing, no acute issues overnight. Physical Exam Vital signs: Vital Signs 07/14/18 18:02 07/15/18 06:00 Temperature 99.7 F H 98.1 F Pulse Rate 79 71 Respiratory Rate 16 18 Blood Pressure 124/67 153/75 H Pulse Oximetry 96 97 Intake & Output 07/14/18 07/15/18 07/15/18 18:59 06:59 18:59 Intake Total 840 / 840 240 / 240 Balance 840 / 840 240 / 240 Intake: Oral 840 / 840 240 / 240 Other: Date of Last Bowel Movement 07/13/18 Narrative: GENERAL: This is a well-nourished, well-developed patient, in no apparent distress. SKIN: Warm and dry. HEENT: Normocephalic. Pupils equal round. Nose without bleeding. Airway patent. NECK: Trachea midline. CARDIOVASCULAR: Regular rate and rhythm without murmurs, gallops, or rubs. RESPIRATORY: Clear to auscultation. Breath sounds equal bilaterally. No wheezes , rales, or rhonchi. GASTROINTESTINAL: Abdomen soft, non-tender, slightly distended. Bowel Sounds hypoactive. MUSCULOSKELETAL: Extremities without clubbing, cyanosis, or edema. NEUROLOGICAL: Awake and alert. Oriented to place, person. Right sided weakness. Normal speech. Results - Labs CBC & Chem 7: 07/14/18 05:54 07/14/18 05:54 Laboratory Results - last 24 hr 07/14/18 07/15/18 05:54 06:29 POC Glucose 151 H Hemoglobin A1c 6.1 H Assessment and Plan - Assessment (1) Hypertension Code(s): I10 - Essential (primary) hypertension Status: Acute (2) Diabetes type 2, controlled Code(s): E11.9 - Type 2 diabetes mellitus without complications Status: Acute (3) CAD (coronary artery disease) Code(s): I25.10 - Atherosclerotic heart disease of [place] coronary artery without angina pectoris Status: Acute (4) Abdominal pain Code(s): R10.9 - Unspecified abdominal pain Status: Acute - Plan 63-year-old male patient with past medical history of hypertension, CAD, CVA, diabetes mellitus type 2, and depression who came in initially to [facility] delusional refusing medical care and poorly cooperative. Patient was Hankins acted and admitted to inpatient psychiatry unit for further evaluation Depression/unspecified psychosis -Management by psychiatry team Type 2 diabetes mellitus, no acute complication -Glipizide and metformin. -Accu-Cheks, monitor for any hypoglycemia. -Monitor blood sugar trends -Hemoglobin A1c 6.1 Hypertension History of CAD -Continue Plavix, lisinopril 10 mg daily -Monitor BP trend Right upper quadrant pain Right CVA tenderness History of kidney stones Leukocytosis -Renal ultrasound negative -Complains of constipation -Abdominal x-ray showed Significant amount retained stool in the left colon -Lactulose x1 dose given. Continue with bowel regimen. -No abdominal discomfort reported. Eating well without n/v. GERD -Continue Carafate and Protonix Elevated creatinine, possibly chronic secondary to diabetic nephropathy -Avoid nephrotoxins. Monitor renal indicis -Renal ultrasound negative -Encourage p.o. fluid intake -Decrease metformin dose for now 1000mg BID, will hold off if SEMI TRUCK DRIVER cont to be elevated DVT Prophylaxis Ambulation. Code Status: Full code Discussed Condition With: Patient, nursing Discharge Planning: DC disposition by primary team
[2018-07-15] MEDS: traZODone 50 MG Tablet PO SCH (20:28)
[2018-07-16] MEDS: glipiZIDE 5 MG Tablet PO SCH (06:36)
[2018-07-16 07:55] LABS: Carbon Dioxide 25.1 meq/L (21.0-32.0); Potassium 4.2 meq/L (3.5-5.1)
[2018-07-16] MEDS: Lisinopril 5 MG Tablet PO SCH (08:25)
[2018-07-16] MEDS: QUEtiapine 25 MG Tablet PO SCH ×3 (08:25→17:58)
[2018-07-16] MEDS: levETIRAcetam 500 MG Tablet PO SCH ×2 (08:26→20:43)
[2018-07-16] MEDS: Sucralfate 1 GM Tablet PO SCH ×4 (08:26→20:44)
[2018-07-16] MEDS: Sertraline 50 MG Tablet PO SCH (08:26)
[2018-07-16] MEDS: Senna/Docusate Sodium 8.6/50 MG Tablet PO SCH (08:27)
--- NOTE | 2018-07-16 13:29 | P.PNIM ---
Subjective Interval history: Follow-up visit DM 2, HTN, CVA with right-sided weakness. Patient seen and examined today. Reports he is doing okay. No further complaints. Reports had a BM this morning. As per nursing, no acute issues overnight. Physical Exam Vital signs: Vital Signs 07/15/18 19:36 07/16/18 06:00 Temperature 98.2 F Pulse Rate 71 Respiratory Rate 18 Blood Pressure 111/68 135/75 Pulse Oximetry 96 Intake & Output 07/15/18 07/16/18 07/16/18 18:59 06:59 18:59 Intake Total 720 / 720 Balance 720 / 720 Intake: Oral 720 / 720 Narrative: GENERAL: This is a well-nourished, well-developed patient, in no apparent distress. SKIN: Warm and dry. HEENT: Normocephalic. Pupils equal round. Nose without bleeding. Airway patent. NECK: Trachea midline. CARDIOVASCULAR: Regular rate and rhythm without murmurs, gallops, or rubs. RESPIRATORY: Clear to auscultation. Breath sounds equal bilaterally. No wheezes , rales, or rhonchi. GASTROINTESTINAL: Abdomen soft, non-tender, slightly distended. Bowel Sounds hypoactive. MUSCULOSKELETAL: Extremities without clubbing, cyanosis, or edema. NEUROLOGICAL: Awake and alert. Oriented to place, person. Right sided weakness. Normal speech. Results - Labs CBC & Chem 7: 07/14/18 05:54 07/16/18 07:11 Laboratory Results - last 24 hr 07/15/18 07/16/18 07/16/18 19:54 06:39 07:11 Sodium 140 Potassium 4.2 Chloride 105 Carbon Dioxide 25.1 Anion Gap 10 BUN 25 H Creatinine 1.27 Estimated GFR 57 L POC Glucose 196 H 190 H Random Glucose 167 H Calcium 9.0 07/16/18 12:00 Sodium Potassium Chloride Carbon Dioxide Anion Gap BUN Creatinine Estimated GFR POC Glucose 107 Random Glucose Calcium Assessment and Plan - Assessment (1) Hypertension Code(s): I10 - Essential (primary) hypertension Status: Acute (2) Diabetes type 2, controlled Code(s): E11.9 - Type 2 diabetes mellitus without complications Status: Acute (3) CAD (coronary artery disease) Code(s): I25.10 - Atherosclerotic heart disease of [place] coronary artery without angina pectoris Status: Acute (4) Abdominal pain Code(s): R10.9 - Unspecified abdominal pain Status: Acute - Plan 63-year-old male patient with past medical history of hypertension, CAD, CVA, diabetes mellitus type 2, and depression who [facility] refusing medical care and poorly cooperative. Patient was Hankins acted and admitted to inpatient psychiatry unit for further evaluation Depression/unspecified psychosis -Management by psychiatry team Type 2 diabetes mellitus, no acute complication -Glipizide and metformin. -Accu-Cheks, monitor for any hypoglycemia. -Monitor blood sugar trends -Hemoglobin A1c 6.1 Hypertension History of CAD -Continue Plavix, lisinopril 10 mg daily -Monitor BP trend Right upper quadrant pain Right CVA tenderness History of kidney stones Leukocytosis -Renal ultrasound negative -Complains of constipation -Abdominal x-ray showed Significant amount retained stool in the left colon -Continue with bowel regimen. -No abdominal discomfort reported. Eating well without n/v. -Reports BM GERD -Continue Carafate and Protonix Elevated creatinine, possibly chronic secondary to diabetic nephropathy -Avoid nephrotoxins. Monitor renal indicis -Renal ultrasound negative -Encourage p.o. fluid intake -Decrease metformin dose for now 1000mg BID, will hold off if OPTOMETRY ASSISTANT cont to be elevated DVT Prophylaxis Ambulation. Stable from Hospitalist standpoint. We will sign off. Reconsult as needed. Thank you. Code Status: Full Code Discussed Condition With: Patient. nursing Discharge Planning: DC disposition by primary team
--- NOTE | 2018-07-16 14:11 | P.PNPSY ---
Subjective Remarks: Patient was seen and case discussed with nursing. Patient is alert and oriented x3. Though, he has poor insight concerning his admission. He is celebrating but not sure of the significance of that day and history. Compliant with medications. No outbursts Mental Status Examination Appearance: Appropriate Consciousness: Alert Orientation: Person, Place, Date/Time Motor Activity: Abnormal gait (In a Rhonda chair) Speech: Unremarkable, Rapid (Somewhat increased at this time) Language: Other (Rambling) Fund of Knowledge: Adequate (Fair) Attention and Concentration: Adequate (Fair ) Memory: Impaired Mood: Angry (Somewhat today), Irritable Affect: Other (Increased range and intensity) Thought Process & Associations: Disorganized, Other (Somewhat perseverative) Thought Content: Delusional Hallucination Type: None Delusion Type: Paranoid Suicidal Ideation: No Suicidal Plan: No Suicidal Intention: No Homicidal Ideation: No Homicidal Plan: No Homicidal Intention: No Insight: Poor Judgment: Poor Assessment and Plan - Assessment (1) Unspecified psychosis Code(s): F29 - Unspecified psychosis not due to a substance or known physiological condition Status: Acute - Plan Plan: Continue current treatment plan Justification for Continued Inpatient Stay: Patient would decompensate in a less restrictive setting Request Healthcare Surrogate/Guardian Advocate?: No (1) Unspecified psychosis Qualifiers: Psychosis type: unspecified psychosis type Qualified Code(s): F29 - Unspecified psychosis not due to a substance or known physiological condition
[2018-07-16] MEDS: traZODone 50 MG Tablet PO SCH (20:43)
[2018-07-17] MEDS: glipiZIDE 5 MG Tablet PO SCH (06:34)
[2018-07-17] MEDS: levETIRAcetam 500 MG Tablet PO SCH ×2 (08:24→21:03)
[2018-07-17] MEDS: Senna/Docusate Sodium 8.6/50 MG Tablet PO SCH (08:25)
[2018-07-17] MEDS: Lisinopril 5 MG Tablet PO SCH (08:25)
[2018-07-17] MEDS: QUEtiapine 25 MG Tablet PO SCH ×3 (08:25→17:24)
[2018-07-17] MEDS: Sertraline 50 MG Tablet PO SCH (08:25)
[2018-07-17] MEDS: Sucralfate 1 GM Tablet PO SCH ×4 (08:25→21:03)
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
[2018-07-17] MEDS: traZODone 50 MG Tablet PO SCH (21:04)
[2018-07-18] MEDS: levETIRAcetam 500 MG Tablet PO SCH ×2 (09:33→20:17)
[2018-07-18] MEDS: QUEtiapine 25 MG Tablet PO SCH ×3 (09:33→20:40)
[2018-07-18] MEDS: glipiZIDE 5 MG Tablet PO SCH (09:33)
[2018-07-18] MEDS: Senna/Docusate Sodium 8.6/50 MG Tablet PO SCH (09:34)
[2018-07-18] MEDS: Sertraline 50 MG Tablet PO SCH (09:34)
[2018-07-18] MEDS: Lisinopril 5 MG Tablet PO SCH (09:34)
[2018-07-18] MEDS: Sucralfate 1 GM Tablet PO SCH ×4 (09:34→20:17)
--- NOTE | 2018-07-18 11:20 | P.PNPSY ---
Subjective Remarks: Patient seen in day room with nurse Nayely, chart reviewed, patient compliant medication. Patient continues angry somewhat irritable demanding to be return home. To return to his halfway. He has been no significant behavioral problems on the unit. No complaints of being poisoned or bad food. We will increase calling Seroquel to 100 mg a. M. Continue 50 mg at 2 PM and 8 PM. Increase trazodone to 100 mg at bedtime Review of Systems All other systems reviewed negative except as stated in HPI Mental Status Examination Appearance: Appropriate Consciousness: Alert Orientation: Person, Place, Date/Time Motor Activity: Abnormal gait (In a Rhonda chair) Speech: Unremarkable, Rapid (Somewhat increased at this time) Language: Adequate, Other (Rambling) Fund of Knowledge: Adequate (Fair) Attention and Concentration: Adequate (Fair ) Memory: Impaired Mood: Angry, Irritable Affect: Other (Increased range and intensity) Thought Process & Associations: Disorganized, Other (Somewhat perseverative) Thought Content: Delusional Hallucination Type: None Delusion Type: Paranoid Suicidal Ideation: No Suicidal Plan: No Suicidal Intention: No Homicidal Ideation: No Homicidal Plan: No Homicidal Intention: No Insight: Poor Judgment: Poor Assessment and Plan - Assessment (1) Unspecified psychosis Code(s): F29 - Unspecified psychosis not due to a substance or known physiological condition Status: Acute - Plan Plan: Patient today is showing some increased anger irritability little to no insight into her disease. C medication adjustments above Justification for Continued Inpatient Stay: At this time patient would decompensate a place to a lower level of care Discharge Planning: Placement may become difficult that appears his prior placement is willing to have him return there once stabilized Request Healthcare Surrogate/Guardian Advocate?: No (1) Unspecified psychosis Qualifiers: Psychosis type: unspecified psychosis type Qualified Code(s): F29 - Unspecified psychosis not due to a substance or known physiological condition
[2018-07-18 18:09] VITALS: RESP 18
[2018-07-18] MEDS: traZODone 50 MG Tablet PO SCH (20:17)
[2018-07-19 06:13] VITALS: O2SAT 95
[2018-07-19] MEDS: glipiZIDE 5 MG Tablet PO SCH (06:29)
[2018-07-19] MEDS: QUEtiapine 100 MG Tablet PO SCH (08:43)
[2018-07-19] MEDS: Sucralfate 1 GM Tablet PO SCH ×4 (08:43→20:49)
[2018-07-19] MEDS: Senna/Docusate Sodium 8.6/50 MG Tablet PO SCH (08:43)
[2018-07-19] MEDS: Sertraline 50 MG Tablet PO SCH (08:43)
[2018-07-19] MEDS: levETIRAcetam 500 MG Tablet PO SCH ×2 (08:43→20:49)
[2018-07-19] MEDS: Lisinopril 5 MG Tablet PO SCH (08:43)
--- NOTE | 2018-07-19 12:00 | P.PNPSY ---
Subjective Remarks: Patient seen in day room with floor staff, chart reviewed, patient compliant medication. Patient continues somewhat irritable continues to ask about when he is going to be discharged home" he is showing no insight into who possibly of returning to his alf. He continues diffusely confused. Review of Systems All other systems reviewed negative except as stated in HPI Mental Status Examination Appearance: Appropriate Consciousness: Alert Orientation: Person, Place, Date/Time Motor Activity: Abnormal gait (In a Rhonda chair) Speech: Unremarkable, Rapid (Somewhat increased at this time) Language: Adequate, Other (Rambling) Fund of Knowledge: Adequate (Fair) Attention and Concentration: Adequate (Fair ) Memory: Impaired Mood: Angry, Irritable Affect: Other (Increased range and intensity) Thought Process & Associations: Disorganized, Other (Somewhat perseverative) Thought Content: Delusional Hallucination Type: None Delusion Type: Paranoid Suicidal Ideation: No Suicidal Plan: No Suicidal Intention: No Homicidal Ideation: No Homicidal Plan: No Homicidal Intention: No Insight: Poor Judgment: Poor Assessment and Plan - Assessment (1) Unspecified psychosis Code(s): F29 - Unspecified psychosis not due to a substance or known physiological condition Status: Acute (2) Major neurocognitive disorder due to another medical condition with behavioral disturbance Code(s): F02.81 - Dementia in other diseases classified elsewhere with behavioral disturbance Status: Acute - Plan Plan: Patient remains irritable somewhat confused and disoriented, compliant medication, placement may become somewhat problematic Justification for Continued Inpatient Stay: At this time patient would decompensate a place to a lower level of care Discharge Planning: To be determined Request Healthcare Surrogate/Guardian Advocate?: No (1) Unspecified psychosis Qualifiers: Psychosis type: unspecified psychosis type Qualified Code(s): F29 - Unspecified psychosis not due to a substance or known physiological condition
[2018-07-19] MEDS: QUEtiapine 25 MG Tablet PO SCH ×2 (13:51→20:56)
[2018-07-19] MEDS: traZODone 50 MG Tablet PO SCH (20:55)
[2018-07-20] MEDS: glipiZIDE 5 MG Tablet PO SCH (06:41)
[2018-07-20 06:44] VITALS: BP 122/63; PULSE 67; TEMP 97.7
[2018-07-20] MEDS: QUEtiapine 100 MG Tablet PO SCH (08:47)
[2018-07-20] MEDS: Senna/Docusate Sodium 8.6/50 MG Tablet PO SCH (08:47)
[2018-07-20] MEDS: Sucralfate 1 GM Tablet PO SCH ×2 (08:47→13:56)
[2018-07-20] MEDS: levETIRAcetam 500 MG Tablet PO SCH (08:47)
[2018-07-20] MEDS: Lisinopril 5 MG Tablet PO SCH (08:47)
[2018-07-20] MEDS: Sertraline 50 MG Tablet PO SCH (08:47)
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
[2018-07-20] MEDS: QUEtiapine 25 MG Tablet PO SCH (13:56)
== END 2018-07-20 16:50 ==
LOC: H250 16:18
PROVIDERS: ADMIT Psychiatry & Neurology Psychiatry; ATTEND Psychiatry & Neurology Psychiatry